=== PATIENT | female | born 1955 | race Asian ===

== ENCOUNTER 2023-10-12 07:00 | Outpatient (CLI) | payer MEDICARE, OTHER ==
--- NOTE | 2023-10-12 19:48 | XRAY Report ---
PROCEDURE: Chest 2 View X-Ray INDICATIONS: ACUTE BRONCHITIS TECHNIQUE: 2 views of the chest were acquired. COMPARISON: None. FINDINGS: Surgical changes and devices: None. Lungs and pleura: No pleural effusions or pneumothorax. Lungs are mildly hyperexpanded and clear. Mediastinum: Mediastinal contours appear normal. Heart size is normal. Bones and chest wall: No suspicious bony lesions. Overlying soft tissues appear unremarkable. IMPRESSION: No acute cardiopulmonary process. Mildly hyperexpanded lungs can be seen in the setting of COPD. Reviewed by: Braxton Johnson MD on 10/12/2023 7:47 PM PST Approved by: Braxton Johnson MD on 10/12/2023 7:47 PM PST Station ID: [id number]
== END 2023-10-12 23:59 | disposition home or self-care (01) ==
LOC: DI.S 07:00
PROVIDERS: ATTEND Physician Assistant
DX: J20.9 Acute bronchitis, unspecified (principal)

== ENCOUNTER 2023-10-12 08:00 | Outpatient (CLI) | payer MEDICARE | END 2023-10-12 08:01 | disposition home or self-care (01) | LOC: LAB.S 08:00 | PROVIDERS: ATTEND Physician Assistant | DX: J20.9 Acute bronchitis, unspecified (principal) ==

== ENCOUNTER 2023-10-25 07:00 | Outpatient (CLI) | payer MEDICARE ==
--- NOTE | 2023-10-25 17:16 | XRAY Report ---
PROCEDURE: Chest 2V INDICATIONS: INFLUENZA A TECHNIQUE: 2 views of the chest were acquired. COMPARISON: CXR 10/12/2023. FINDINGS: Surgical changes and devices: None. Lungs and pleura: No pleural effusions or pneumothorax. No consolidation. Mediastinum: Mediastinal contours appear normal. Heart size is normal. Bones and chest wall: No suspicious bony lesions. Overlying soft tissues appear unremarkable. IMPRESSION: No acute cardiopulmonary process. Reviewed by: Dev Turcios MD on 10/25/2023 5:15 PM PST Approved by: Dev Turcios MD on 10/25/2023 5:15 PM PST Station ID: [id number]
== END 2023-10-25 23:59 | disposition home or self-care (01) ==
LOC: DI.S 07:00
PROVIDERS: ATTEND Emergency Medicine
DX: J09.X2 Influenza due to identified novel influenza A virus with other respiratory manifestations (principal)

== ENCOUNTER 2024-05-18 11:44 | Outpatient (CLI) | payer MEDICARE ==
--- NOTE | 2024-05-18 21:25 | XRAY Report ---
PROCEDURE: Chest 2V INDICATIONS: PLEURODYNIA TECHNIQUE: 2 views of the chest were acquired. COMPARISON: Chest x-ray 10/25/2023 FINDINGS: Surgical changes and devices: None. Lungs and pleura: No pleural effusions or pneumothorax. Lungs are clear. Mediastinum: Mediastinal contours appear normal. Heart size is normal. Bones and chest wall: No suspicious bony lesions. Overlying soft tissues appear unremarkable. IMPRESSION: No acute cardiopulmonary process. Reviewed by: Kathy Hammond MD on 05/18/2024 9:24 PM PDT Approved by: Kathy Hammond MD on 05/18/2024 9:24 PM PDT Station ID: [id number]
== END 2024-05-18 11:45 | disposition home or self-care (01) ==
LOC: DI 11:44
PROVIDERS: ATTEND Registered Nurse
DX: R07.81 Pleurodynia (principal)